=== PATIENT | male | born 1995 | race Caucasian/White ===

== ENCOUNTER 2018-10-07 20:44 | Emergency (ER) | payer MEDICAID ==
[~2018-10-07] VITALS: Ht 177.8 cm; Wt 89.4 kg
[2018-10-07 20:56] VITALS: BP 127/74
--- NOTE | 2018-10-07 21:01 | NUR ---
PT AMBULATED TO LOBBY
--- NOTE | 2018-10-08 01:30 | NUR ---
22 YO M BIB CAREGIVER FROM NURSING HOME. HERE FOR EMERGENCY MED REFILL. PSYCHIATRIST OUT OF TOWN. LAST DOSES TAKEN AT BEDTIME ON 10/06/18. BARGE LOADER STATES PT IS NOT SHOWING SIGNS OF BEAHVIORAL CHANGE. PT NEEDS REFILLS FOR: --ZOLOFT 100 MG PO AT BEDTIME- TAKE 1.5 TABS --SEROQUEL 200 MG PO AT BEDTIME- TAKE 1 TAB -- PT AWAKE, ALERT, CALM, COOPERATIVE. -- SKIN PINK, WARM, DRY. BREATHING EVEN, UNLABORED.
--- NOTE | 2018-10-08 02:44 | NUR ---
DR. SORIANO EVALUATING AT BEDSIDE.
[2018-10-08 03:43] VITALS: BP 117/79
--- NOTE | 2018-10-08 03:43 | NUR ---
Patient discharged with v/s stable. Written and verbal after care instructions given and explained. Patient alert, oriented and verbalized understanding of instructions. Ambulatory with steady gait. All questions addressed prior to discharge. ID band removed. Patient advised to follow up with PMD. Rx of Quetiapine given. Patient educated on indication of medication including possible reaction and side effects. Opportunity to ask questions provided and answered.
== END 2018-10-08 03:43 | disposition home or self-care (01) ==
LOC: MED 20:44
DX: F29 Unspecified psychosis not due to a substance or known physiological condition (principal); Z76.0 Encounter for issue of repeat prescription
CPT/HCPCS: 99283

== ENCOUNTER 2019-10-05 20:20 | Emergency (ER) | payer MEDICAID ==
[~2019-10-05] VITALS: Ht 182.9 cm; Wt 64.4 kg
[2019-10-05 20:20] VITALS: BP 152/98
--- NOTE | 2019-10-05 20:22 | NUR ---
PT YANDEL DE LEON. TAKEN TO BED 11
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
--- NOTE | 2019-10-05 20:23 | NUR ---
Dr. Fuller examining patient.
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
--- NOTE | 2019-10-05 20:23 | NUR ---
[place] PD AT BEDSIDE
[2019-10-05] MEDS ORDERED: IBUPROFEN 400 MG TAB ONE (20:35)
[2019-10-05] MEDS ORDERED: ACETAMINOPHEN EXTRA STRENGTH 500 MG TAB ONE (20:35)
[2019-10-05] MEDS ORDERED: ACETAMINOPHEN EXTRA STRENGTH 500 MG TAB PO ONE (20:40)
[2019-10-05] MEDS ORDERED: IBUPROFEN 400 MG TAB PO ONE (20:40)
--- NOTE | 2019-10-05 20:47 | NUR ---
PT TAKEN TO RAD VIA WHEELCHAIR
--- NOTE | 2019-10-05 21:01 | NUR ---
PT RETURN FROM XRAY
[2019-10-05 22:00] VITALS: BP 152/98
== END 2019-10-05 22:00 | disposition home or self-care (01) ==
LOC: MED 20:20
DX: M54.6 Pain in thoracic spine (principal)
CPT/HCPCS: 71045; 72110; 99284

== ENCOUNTER 2021-03-26 11:57 | Emergency (ER) | payer OTHER, MEDICAID ==
[~2021-03-26] VITALS: Ht 185.4 cm; Wt 57.6 kg
[2021-03-26 12:30] VITALS: BP 127/89
[2021-03-26] MEDS ORDERED: IBUP-2213 PO (13:58)
[2021-03-26 14:59] VITALS: BP 108/70
--- NOTE | 2021-03-26 15:00 | NUR ---
Patient discharged with v/s stable. Written and verbal after care instructions given and explained. Patient verbalized understanding. Ambulatory with steady gait. All questions addressed prior to discharge. Advised to follow up with PMD.
== END 2021-03-26 15:00 | disposition home or self-care (01) ==
LOC: MED 11:57
DX: S30.811D Abrasion of abdominal wall, subsequent encounter (principal); F17.210 Nicotine dependence, cigarettes, uncomplicated; W34.010D Accidental discharge of airgun, subsequent encounter
CPT/HCPCS: 81002; 99282

== ENCOUNTER 2021-07-06 16:33 | Emergency (ER) | payer OTHER, MEDICAID ==
[~2021-07-06] VITALS: Ht 182.9 cm; Wt 76.8 kg
[~2021-07-06 16:33] MED LIST: IBUP-2213 PO
[2021-07-06 16:39] VITALS: BP 143/90
[2021-07-06] MEDS ORDERED: KETOROLAC 60 MG/2 ML VIAL IM ONE (17:05)
[2021-07-06] MEDS ORDERED: PENI-319 PO (17:20)
[2021-07-06] MEDS ORDERED: IBUP-2213 PO (17:20)
--- NOTE | 2021-07-06 17:33 | NUR ---
The patient's care was reviewed and supervised by Angella Scanlon, RN, RN.
--- NOTE | 2021-07-06 17:37 | NUR ---
Patient discharged with v/s stable. Written and verbal after care instructions ABOUT DENTAL ABSCESS given and explained. Patient alert, oriented and verbalized understanding of instructions. Ambulatory with steady gait. All questions addressed prior to discharge. ID band removed. Patient advised to follow up with PMD. Rx of IBUPROFEN AND PENICILLIN V POTASSIUM given. Patient educated on indication of medication including possible reaction and side effects. Opportunity to ask questions provided and answered.
[2021-07-06 17:38] VITALS: BP 143/90
== END 2021-07-06 17:38 | disposition home or self-care (01) ==
LOC: MED 16:33
DX: K04.7 Periapical abscess without sinus (principal); F17.200 Nicotine dependence, unspecified, uncomplicated; Z79.899 Other long term (current) drug therapy
CPT/HCPCS: 96372; 99283; J1885